=== PATIENT | male | born 1955 | race Caucasian/White ===

== ENCOUNTER 2020-06-04 08:50 | Day surgery (SDC) | payer OTHER ==
[~2020-06-04] VITALS: Ht 165.1 cm; Wt 60.9 kg
--- NOTE | 2020-06-04 12:30 | NUR ---
06/04/20 1230 Ellyn Martinez PT RETCHING, 4 MG ZOFRAN IV GIVEN AND 10 MG REGLAN IV GIVEN PER DR. GREGORIO'S ORDERS.
--- NOTE | 2020-06-04 13:29 | NUR ---
06/04/20 1329 Ellyn Martinez PT BP 190s-200s IN SDU. DR GREGORIO NOTIFIED. HYDRALAZINE ORDERED, NOT AVAILABLE IN THE HOSPITAL. PER SISTER / CAREGIVER, PT's BP IS ALWAYS ELEVATED WHEN AT THE HOSPITAL. DOES NOT TAKE BP MEDS AT HOME. DR. GREGORIO NOTIFIED, NO NEW ORDERS. OK FOR PT TO BE DISCHARGED HOME.
== END 2020-06-04 13:32 | disposition home or self-care (01) ==
LOC: ORSCSDS 08:50
PROVIDERS: Dentist Pediatric Dentistry
PROC: 0CDWXZ1 Extraction of Upper Tooth, Multiple, External Approach (ICD-10-PCS; principal; 2020-06-04 10:15)
PROC: 0CDXXZ1 Extraction of Lower Tooth, Multiple, External Approach (ICD-10-PCS; principal; 2020-06-04 10:15)
PROC: 0CRWXJ1 Replacement of Upper Tooth, Multiple, with Synthetic Substitute, External Approach (ICD-10-PCS; principal; 2020-06-04 10:15)
PROC: 0CRXXJ1 Replacement of Lower Tooth, Multiple, with Synthetic Substitute, External Approach (ICD-10-PCS; principal; 2020-06-04 10:15)
DX: K02.9 Dental caries, unspecified (principal); K05.30 Chronic periodontitis, unspecified; R62.50 Unspecified lack of expected normal physiological development in childhood; E78.5 Hyperlipidemia, unspecified; R73.9 Hyperglycemia, unspecified; I10 Essential (primary) hypertension
CPT/HCPCS: J1100; J2405; J2704; J2765; J7120